=== PATIENT | male | born 1995 | race Caucasian/White ===

== ENCOUNTER 2023-05-12 19:38 | Inpatient (IN) | payer MEDICARE ==
[~2023-05-12] VITALS: Ht 165.1 cm; Wt 70.5 kg
[2023-05-12] MEDS ORDERED: LITH45TASA PO (19:52)
[2023-05-12 21:39] LABS: HEMATOCRIT 38.5 % (42.0-52.0); HEMOGLOBIN 13.1 g/dl (13.5-17.5); MEAN CORPUSCULAR HEMOGLOBIN 29.6 pg (27.0-33.0); MEAN CORPUSCULAR VOLUME 87.1 fl (80.0-96.0); PLATELET COUNT, AUTOMATED 244 10^3/uL (150-450); RED BLOOD COUNT 4.42 10^6/uL (4.30-6.10); WHITE BLOOD COUNT 14.4 10^3/uL (4.0-10.0)
[2023-05-12 21:43] LABS: AMPHETAMINES LEVEL URINE NEGATIVE (NEGATIVE); BARBITURATES URINE NEGATIVE (NEGATIVE); BENZODIAZEPINES URINE NEGATIVE (NEGATIVE); COCAINE METABOLITE URINE NEGATIVE (NEGATIVE); METHADONE URINE NEGATIVE (NEGATIVE); OPIATES URINE NEGATIVE (NEGATIVE); PHENCYCLIDINE URINE NEGATIVE (NEGATIVE)
[2023-05-12 21:45] LABS: CANNABINOIDS URINE POSITIVE (NEGATIVE)
[2023-05-12 22:03] LABS: ETHYL ALCOHOL (ETHANOL) < 0.003 % (0.000-0.010)
[2023-05-12 22:05] LABS: ACETAMINOPHEN LEVEL < 2.0 UG/ML (10.0-20.0); ALBUMIN 4.1 G/DL (3.2-5.2); ALKALINE PHOSPHATASE 63 U/L (46-116); ALT/SGPT 33 U/L (7.0-40); AST/SGOT 28 U/L (<34); BILIRUBIN,DIRECT 0.3 MG/DL (<0.4); BILIRUBIN,TOTAL 0.8 MG/DL (0.3-1.2); BLOOD UREA NITROGEN 19 MG/DL (9-23); CALCIUM LEVEL 9.1 MG/DL (8.5-10.1); CARBON DIOXIDE LEVEL 26 MMOL/L (20-31); CHLORIDE LEVEL 105 MMOL/L (98-107); CREATININE FOR GFR 0.97 MG/DL (0.70-1.30); GLOMERULAR FILTRATION RATE > 60.0 (>60); GLUCOSE, FASTING 113 MG/DL (60-100); LITHIUM LEVEL < 0.10 MMOL/L (1.0-1.20); POTASSIUM SERUM 3.7 MMOL/L (3.5-5.1); SALICYLATE LEVEL < 3.0 MG/DL (<30); SODIUM LEVEL 139 MMOL/L (136-145); TOTAL PROTEIN 6.8 G/DL (5.7-8.2)
[2023-05-12 22:07] LABS: THYROID STIMULATING HORMONE 2.075 uIU/ML (0.55-4.78)
[2023-05-12 22:11] LABS: CPK CREATINE PHOSPHOKINASE 631 U/L (46-171)
[2023-05-13] MEDS ORDERED: HOME MED LIST COMPLETE! XX SCH (05:50)
[2023-05-13] MEDS ORDERED: IBUPROFEN 400MG TAB PO PRN (09:35)
[2023-05-13] MEDS ORDERED: traZODone 50 MG TAB PO PRN (09:35)
[2023-05-13] MEDS ORDERED: diphenhydrAMINE 25MG CAP PO PRN (09:35)
[2023-05-13] MEDS ORDERED: MOM 30ML SUSPENSION UDC PO PRN (09:35)
[2023-05-13] MEDS ORDERED: MAALOX 30 ML SUSP *UDC PO PRN (09:35)
[2023-05-13 11:00] VITALS: BP_SYST 106; BP_SYST 132; BP_DIAS 55; BP_DIAS 60; TEMP 97.4; O2SAT 100
[2023-05-13] MEDS: ACETAMINOPHEN TAB 650MG DOSE (2X325MG) PO PRN (15:48)
[2023-05-13 18:51] VITALS: BP 131/62; TEMP 98.1
[2023-05-13] MEDS ORDERED: OLANZapine ORAL DISINTEGRATING TAB 5MG PO PRN (21:20)
[2023-05-14 06:47] VITALS: BP 120/62; TEMP 97.1; O2SAT 100
[2023-05-14] MEDS: LITHIUM CARBONATE 300 MG CAP PO SCH ×2 (09:33→21:24)
[2023-05-14] MEDS: OLANZapine 5 MG TAB PO SCH ×2 (11:42→21:23)
[2023-05-14] MEDS: ACETAMINOPHEN TAB 650MG DOSE (2X325MG) PO PRN (13:04)
[2023-05-15 06:02] VITALS: BP 106/60; TEMP 98.6; O2SAT 100
[2023-05-15] MEDS: OLANZapine 5 MG TAB PO SCH ×2 (09:29→20:59)
[2023-05-15] MEDS: LITHIUM CARBONATE 300 MG CAP PO SCH ×2 (09:29→20:59)
[2023-05-15 15:30] VITALS: BP 126/64; TEMP 97; O2SAT 98
[2023-05-16 06:10] VITALS: BP 114/55; TEMP 97; O2SAT 98
[2023-05-16] MEDS: LITHIUM CARBONATE 300 MG CAP PO SCH ×2 (07:55→21:19)
[2023-05-16] MEDS: OLANZapine 5 MG TAB PO SCH ×2 (07:55→21:19)
[2023-05-16 18:00] VITALS: BP 117/58; TEMP 97.8
[2023-05-17 06:52] VITALS: BP 124/58; TEMP 97.8; O2SAT 99
[2023-05-17] MEDS: OLANZapine 5 MG TAB PO SCH ×2 (09:29→21:44)
[2023-05-17] MEDS: LITHIUM CARBONATE 300 MG CAP PO SCH ×2 (09:30→21:44)
[2023-05-18 06:38] VITALS: BP 128/66; O2SAT 98
[2023-05-18] MEDS: LITHIUM CARBONATE 300 MG CAP PO SCH ×2 (09:36→21:00)
[2023-05-18] MEDS: OLANZapine 5 MG TAB PO SCH ×2 (09:36→21:00)
[2023-05-19 06:10] VITALS: BP 102/52; TEMP 97.6; O2SAT 99
[2023-05-19] MEDS: OLANZapine 5 MG TAB PO SCH ×2 (09:30→20:20)
[2023-05-19] MEDS: LITHIUM CARBONATE 300 MG CAP PO SCH ×2 (09:30→20:20)
[2023-05-19] MEDS: ACETAMINOPHEN TAB 650MG DOSE (2X325MG) PO PRN (15:56)
[2023-05-19 18:00] VITALS: BP 128/78; TEMP 97.8
[2023-05-20 05:40] VITALS: BP 124/60; TEMP 98; O2SAT 96
[2023-05-20] MEDS: LITHIUM CARBONATE 300 MG CAP PO SCH ×2 (08:18→20:11)
[2023-05-20] MEDS: OLANZapine 5 MG TAB PO SCH ×2 (08:18→20:11)
[2023-05-20] MEDS: ACETAMINOPHEN TAB 650MG DOSE (2X325MG) PO PRN (08:18)
[2023-05-20 18:00] VITALS: BP 117/72; TEMP 97.9
[2023-05-21] MEDS: LITHIUM CARBONATE 300 MG CAP PO SCH ×2 (07:53→21:08)
[2023-05-21] MEDS: OLANZapine 5 MG TAB PO SCH (07:53)
[2023-05-21] MEDS: ACETAMINOPHEN TAB 650MG DOSE (2X325MG) PO PRN (10:51)
[2023-05-21] MEDS: fluPHENAZine 5MG TABLET PO SCH (21:08)
[2023-05-22 06:43] VITALS: BP 132/77; TEMP 98.4; O2SAT 99
[2023-05-22] MEDS: fluPHENAZine 5MG TABLET PO SCH ×2 (09:05→20:08)
[2023-05-22] MEDS: OLANZapine 10 MG TAB PO SCH (09:05)
[2023-05-22] MEDS: LITHIUM CARBONATE 300 MG CAP PO SCH ×2 (09:05→20:08)
[2023-05-22 16:29] VITALS: BP 113/78; TEMP 98; O2SAT 97
[2023-05-23 06:32] VITALS: BP 129/63; TEMP 97.7; O2SAT 99
[2023-05-23] MEDS ORDERED: fluPHENAZine DECAN 25MG/ML 5ML VIAL IM SCH (09:00)
[2023-05-23] MEDS: OLANZapine 10 MG TAB PO SCH (09:07)
[2023-05-23] MEDS: LITHIUM CARBONATE 300 MG CAP PO SCH ×2 (09:07→20:11)
[2023-05-23] MEDS: fluPHENAZine 5MG TABLET PO SCH ×2 (09:07→20:11)
[2023-05-23] MEDS: ACETAMINOPHEN TAB 650MG DOSE (2X325MG) PO PRN (16:15)
[2023-05-23 16:23] VITALS: BP 118/60; TEMP 98.9; O2SAT 95
[2023-05-24] MEDS: fluPHENAZine 5MG TABLET PO SCH (08:21)
[2023-05-24] MEDS: LITHIUM CARBONATE 300 MG CAP PO SCH (08:21)
[2023-05-24] MEDS: OLANZapine 10 MG TAB PO SCH (08:21)
[2023-05-24] MEDS: ACETAMINOPHEN TAB 650MG DOSE (2X325MG) PO PRN (09:17)
[2023-05-24] MEDS ORDERED: FLUP25VL IM (10:10)
[2023-05-24] MEDS ORDERED: LITH300C PO (10:10)
[2023-05-24] MEDS ORDERED: FLUP5TAB13 PO (10:10)
[2023-05-24] MEDS ORDERED: OLAN1TAB20 PO (10:11)
== END 2023-05-24 11:17 | disposition home or self-care (01) | DRG 885 ==
LOC: M ED 19:38 → M ED INP 05-13 09:34 → M PSY 05-13 12:09
PROVIDERS: ADMIT Psychiatry & Neurology Child & Adolescent Psychiatry; ATTEND Psychiatry & Neurology Child & Adolescent Psychiatry
DX: F31.5 Bipolar disorder, current episode depressed, severe, with psychotic features (principal)